=== PATIENT | male | born 1960 | race Caucasian/White ===

== ENCOUNTER 2019-04-23 22:55 | Emergency (ER) | payer OTHER ==
[~2019-04-23] VITALS: Ht 177.8 cm; Wt 77.6 kg
--- OUTSIDE RECORDS SUMMARY | 2019-04-23 23:00 | XMS REPORT | Continuity of Care Document ---
Author Organization Unknown Address Unknown Allergies There is no data. Medications There is no data. Problems There is no data. Procedures There is no data. Results Test Result Range TSH - 02/11/19 14:10 TSH 1.20 mIU/L 0.40-4.50 A1C - 02/11/19 14:10 HEMOGLOBIN A1c 5.3 % of total Hgb <5.7 MAGNESIUM SERUM - 02/21/19 14:45 MAGNESIUM 2.2 mg/dL 1.5-2.5 CBC - 02/21/19 14:45 WHITE BLOOD CELL COUNT 3.7 Thousand/uL 3.8-10.8 RED BLOOD CELL COUNT 4.38 Million/uL 4.20-5.80 HEMOGLOBIN 13.5 g/dL 13.2-17.1 HEMATOCRIT 40.2 % 38.5-50.0 MCV 91.8 fL 80.0-100.0 MCH 30.8 pg 27.0-33.0 MCHC 33.6 g/dL 32.0-36.0 RDW 12.5 % 11.0-15.0 PLATELET COUNT 122 Thousand/uL 140-400 MPV 14.2 fL 7.5-12.5 ABSOLUTE NEUTROPHILS 1669 cells/uL [id number] ABSOLUTE LYMPHOCYTES 1251 cells/uL 850-3900 ABSOLUTE MONOCYTES 366 cells/uL 200-950 ABSOLUTE EOSINOPHILS 337 cells/uL 15-500 ABSOLUTE BASOPHILS 78 cells/uL 0-200 NEUTROPHILS 45.1 % NRG LYMPHOCYTES 33.8 % NRG MONOCYTES 9.9 % NRG EOSINOPHILS 9.1 % NRG BASOPHILS 2.1 % NRG ESR/SED RATE - 02/21/19 14:45 SED RATE BY MODIFIED WESTERGREN 2 mm/h < OR=20 VITAMIN D, 25-H - 02/21/19 14:45 VITAMIN D,25-OH,TOTAL,IA 39 ng/mL 30-100 MYOGLOBIN - 02/21/19 14:45 MYOGLOBIN, SERUM 39 mcg/L < 96 Encounters ACCT No. Visit Date/Time Discharge Status Pt. Type Provider Facility Loc./Unit Complaint [id number] 02/21/2019 13:45:00 02/21/2019 23:59:59 [facility] Out[facility] [id number] 02/21/2019 13:45:00 Document Registration [id number] 02/11/2019 13:45:00 Document Registration
[2019-04-23] MEDS ORDERED: ASPIRIN 81 MG CHEW (CHILDREN'S ASA) PO ONE (23:15)
--- NOTE | 2019-04-23 23:17 | ED Chest Pain ---
General Stated Complaint: CHEST PAIN, BACK PAIN, SOB, DIZZY Source: patient Exam Limitations: no limitations History of Present Illness Date Seen by Provider: April 23, 2019 Time Seen by Provider: 23:00 Initial Comments The patient presents to ER by private conveyance from work at the [employer] where he was experiencing some chest pressure that occurred just within the last 15 minutes prior to arrival. He does not have a history of heart disease and denies that this pain just pressure. He says for the past 2 weeks is been noticing some intermittent, exertional based sharp chest pains in the center of his chest. Today's pressure radiates through to his back. He was having some of his chest pains in the last couple hours but they're fleeting and short-lived seconds to a minute or less so he did not think much of them. He did not take anything for them. No history of GERD or reflux. He started getting the chest pressure and it was worse the more he worked so after coming over here and sitting down in the ER he says it is getting better spontaneously. He does have a history of high blood pressure and his prescribed lisinopril but he says he only takes it when his blood pressure gets very high. He denies a history of hypercholesterolemia. He does have a history of paroxysmal atrial fibrillation and so he does not smoke drink or use recreational drugs. He does not use blood thinners. He is known Dr. Bland and does not see a family service caseworker. No familial history of early-onset coronary disease. He denies a history of thyroid disorder. Allergies and Home Medications Allergies Coded Allergies: No Known Drug Allergies (Unverified , 04/23/19) Patient Home Medication List Home Medication List Reviewed: Yes Review of Systems Review of Systems Constitutional: No chills, No diaphoresis, No fever, No malaise EENTM: No Blurred Vision, No Double Vision Respiratory: Denies Cough, Denies Shortness of Air, Denies SOA With Exertion Cardiovascular: See HPI, Chest Pain; Denies Edema, Denies Irregular Heart Rate, Denies Lightheadedness, Denies Palpitations, Denies Syncope Gastrointestinal: Denies Abdomen Distended, Denies Abdominal Pain, Denies Constipated, Denies Diarrhea, Denies Nausea Genitourinary: Denies Burning, Denies Discharge Musculoskeletal: see HPI, back pain; No joint pain Skin: No pruritus, No rash Psychiatric/Neurological: Denies Headache, Denies Numbness, Denies Paresthesia Past Ljdjhbx-Yescle-Ncnnsa Hx Patient Social History Alcohol Use: Denies Use Recreational Drug Use: No Smoking Status: Never a Smoker Recent Foreign Travel: No Contact w/Someone Who Travel: No Physical Exam Vital Signs Vital Signs - First Documented 04/23/19 22:59 Temp 98.0 Pulse 89 Resp 16 B/P (MAP) 171/101 (124) Pulse Ox 100 O2 Delivery Room Air Capillary Refill : Height, Weight, BMI Height: '" Weight: lbs. oz. kg; BMI Method: General Appearance: No Apparent Distress, WD/WN HEENT: PERRL/EOMI, Pharynx Normal, Moist Mucous Membranes Neck: Full Range of Motion, Normal Inspection Respiratory: Chest Non Tender, Lungs Clear, Normal Breath Sounds, No Accessory Muscle Use, No Respiratory Distress Cardiovascular: Regular Rate, Rhythm, No Edema, No Gallop, No JVD, No Murmur, Normal Peripheral Pulses Gastrointestinal: Normal Bowel Sounds, No Organomegaly, Non Tender, Soft Extremity: Normal Capillary Refill, Normal Inspection, No Pedal Edema Neurologic/Psychiatric: Alert, Oriented x3 Skin: Normal Color, Warm/Dry Progress/Results/Core Measures Results/Orders Lab Results Laboratory Tests Test 04/23/19 00:22 04/23/19 23:13 04/24/19 00:55 Range/Units White Blood Count 6.2 4.3-11.0 10^3/uL Red Blood Count 4.40 4.35-5.85 10^6/uL Hemoglobin 13.6 13.3-17.7 G/DL Hematocrit 40 40-54 % Mean Corpuscular Volume 91 80-99 FL Mean Corpuscular Hemoglobin 31 25-34 PG Mean Corpuscular Hemoglobin Concent 34 32-36 G/DL Red Cell Distribution Width 12.7 10.0-14.5 % Platelet Count 126 L 130-400 10^3/uL Mean Platelet Volume 12.4 H 7.4-10.4 FL Neutrophils (%) (Auto) 38 L 42-75 % Lymphocytes (%) (Auto) 42 12-44 % Monocytes (%) (Auto) 14 H 0-12 % Eosinophils (%) (Auto) 6 0-10 % Basophils (%) (Auto) 1 0-10 % Neutrophils # (Auto) 2.3 1.8-7.8 X 10^3 Lymphocytes # (Auto) 2.6 1.0-4.0 X 10^3 Monocytes # (Auto) 0.8 0.0-1.0 X 10^3 Eosinophils # (Auto) 0.3 0.0-0.3 10^3/uL Basophils # (Auto) 0.1 0.0-0.1 10^3/uL Prothrombin Time 12.9 12.2-14.7 SEC INR Comment 0.9 0.8-1.4 Activated Partial Thromboplast Time 27 24-35 SEC Sodium Level 141 135-145 MMOL/L Potassium Level 3.7 3.6-5.0 MMOL/L Chloride Level 102 98-107 MMOL/L Carbon Dioxide Level 24 21-32 MMOL/L Anion Gap 15 H 5-14 MMOL/L Blood Urea Nitrogen 19 H 7-18 MG/DL Creatinine 0.98 0.60-1.30 MG/DL Estimat Glomerular Filtration Rate > 60 BUN/Creatinine Ratio 19 Glucose Level 106 H 70-105 MG/DL Calcium Level 8.8 8.5-10.1 MG/DL Corrected Calcium 8.5 8.5-10.1 MG/DL Magnesium Level 1.9 1.8-2.4 MG/DL Total Bilirubin 0.4 0.1-1.0 MG/DL Aspartate Amino Transf (AST/SGOT) 22 5-34 U/L Alanine Aminotransferase (ALT/SGPT) 13 0-55 U/L Alkaline Phosphatase 93 40-136 U/L Myoglobin 35.4 10.0-92.0 NG/ML Troponin T < 6 < 6 <=15 NG/L Pro-B-Type Natriuretic Peptide 42.4 <75.0 PG/ML Total Protein 7.0 6.4-8.2 GM/DL Albumin 4.4 3.2-4.5 GM/DL Lipase 63 8-78 U/L My Orders Orders - GARY PICKERING Continuous Ekg Monitoring (04/23/19 23:00) Ekg Tracing (04/23/19 23:00) Cbc With Automated Diff (04/23/19 23:10) Magnesium (04/23/19 23:10) Chest 1 View Ap/Pa Only (04/23/19 23:10) Comprehensive Metabolic Panel (04/23/19 23:10) Myoglobin Serum (04/23/19 23:10) Protime With Inr (04/23/19 23:10) Partial Thromboplastin Time (04/23/19 23:10) O2 (04/23/19 23:10) Lipid Panel (04/24/19 06:00) Aspirin Chewable Tablet (Baby Aspirin Ch (04/23/19 23:15) Ed Iv/Invasive Line Start (04/23/19 23:10) Lipase (04/23/19 23:10) Troponin T (04/23/19 23:10) Probnp Fs (04/23/19 23:10) Troponin T (04/24/19 01:00) Medications Given in ED Current Medications Medications Dose Ordered Sig/Alejandrina Route Start Time Stop Time Status Last Admin Dose Admin Aspirin 324 mg ONCE ONCE PO 04/23/19 23:15 04/23/19 23:16 DC 04/23/19 23:14 324 MG Vital Signs/I&O 04/23/19 22:59 Temp 98.0 Pulse 89 Resp 16 B/P (MAP) 171/101 (124) Pulse Ox 100 O2 Delivery Room Air Progress Progress Note : Time: 23:16 Progress Note Exertional chest pressure that seems to be progressively worsening over the past 2 weeks and has gone away by the time he is here in the ER. We'll give him aspirin to chew and swallow and if it comes back we'll give him nitroglycerin. His blood pressure initially is elevated 170 systolic but just with resting it started come down to 149. Rest of his vital signs are aseptic. We'll obtain chest x-ray labs thinking about coronary. He is not hypoxic or tachycardic with a heart rate in the 80s so pulmonary embolism is less likely. Since his pressure goes through to his back we could entertain the possibility of a AAA but this too seems unlikely since his symptoms have resolved within 20 minutes. Lipase ED ACS 14 points. Low risk by the EDACS Score. If the patient also has: (1) EKG without new ischemic changes and (2) negative initial and 2-hour troponins, then this patient is safe for discharge to early outpatient follow-up investigation (or proceed to earlier inpatient testing). If EKG with ischemic changes or positive troponin, they are not low risk and require normal risk stratification. Initial ECG Impression Date: April 23, 2019 Initial ECG Impression Time: 23:05 Initial ECG Rate: 84 Initial ECG Rhythm: Normal Sinus Initial ECG Intervals: Normal Initial ECG Impression: Normal Initial ECG Comparisson: No Previous ECG Available Comment Normal sinus rhythm without ST elevation or depression. Diagnostic Imaging Diagonstic Imaging: Xray Plain Films/CT/US/NM/MRI: chest (1v) Comments No Acute cardiopulmonary processes noted. Reviewed: Reviewed by Me Departure Impression Primary Impression: Chest discomfort Disposition: HOME, SELF-CARE Condition: Stable Departure-Patient Inst. Decision time for Depature: 02:08 Referrals: SUJATA BLAND MD (PCP) Primary Care Physician GARFIELD NOBLES MD Patient Instructions: Chest Pain (DC) Add. Discharge Instructions: Call the family service caseworker tomorrow make an appointment to follow-up. Discussed possible causes of your chest discomfort. If your chest discomfort comes back or comes back as a sharp pain or you cannot breathe or you have other worrisome symptoms please return to the nearest ER for further evaluation and management. GARY PICKERING April 23, 2019 23:17
[2019-04-23 23:21] LABS: HEMATOCRIT 40 % (40-54); HEMOGLOBIN 13.6 G/DL (13.3-17.7); MEAN CORPUSCULAR HEMOGLOBIN 31 PG (25-34); MEAN CORPUSCULAR HGB CONC 34 G/DL (32-36); MEAN CORPUSCULAR VOLUME 91 FL (80-99); MEAN PLATELET VOLUME 12.4 FL (7.4-10.4); PLATELET COUNT 126 10^3/uL (130-400); RED CELL DISTRIBUTION WIDTH 12.7 % (10.0-14.5); WHITE BLOOD COUNT 6.2 10^3/uL (4.3-11.0)
[2019-04-23 23:22] LABS: BASOPHILS # (AUTO) 0.1 10^3/uL (0.0-0.1); BASOPHILS % (AUTO) 1 % (0-10); EOSINOPHILS # (AUTO) 0.3 10^3/uL (0.0-0.3); EOSINOPHILS % (AUTO) 6 % (0-10); LYMPHOCYTES # (AUTO) 2.6 X 10^3 (1.0-4.0); LYMPHOCYTES % (AUTO) 42 % (12-44); MONOCYTES # (AUTO) 0.8 X 10^3 (0.0-1.0); MONOCYTES % (AUTO) 14 % (0-12); NEUTROPHILS # (AUTO) 2.3 X 10^3 (1.8-7.8); NEUTROPHILS % (AUTO) 38 % (42-75)
[2019-04-23 23:38] LABS: INR 0.9 (0.8-1.4); PROTHROMBIN TIME PATIENT 12.9 SEC (12.2-14.7)
[2019-04-23 23:49] LABS: BUN/CREATININE RATIO 19; CARBON DIOXIDE 24 MMOL/L (21-32); CHLORIDE 102 MMOL/L (98-107); CREATININE SERUM 0.98 MG/DL (0.60-1.30); GFR ESTIMATED > 60; POTASSIUM 3.7 MMOL/L (3.6-5.0); SODIUM 141 MMOL/L (135-145)
[2019-04-23 23:50] LABS: ALANINE AMINOTRANSFERASE 13 U/L (0-55); ALBUMIN 4.4 GM/DL (3.2-4.5); ALKALINE PHOSPHATASE 93 U/L (40-136); BILIRUBIN,TOTAL 0.4 MG/DL (0.1-1.0); CALCIUM 8.8 MG/DL (8.5-10.1); GLUCOSE 106 MG/DL (70-105); LIPASE 63 U/L (8-78); MAGNESIUM 1.9 MG/DL (1.8-2.4)
[2019-04-24 02:31] VITALS: BP 167/82
--- NOTE | 2019-04-24 05:28 | Diagnostic Imaging Report ---
INDICATION: Chest pressure and weakness COMPARISON: None FINDINGS: Single frontal view of the chest demonstrates normal heart size and pulmonary vascularity. The lungs are well aerated and clear. No large pleural effusion or pneumothorax is seen. The visualized osseous structures show no acute abnormalities. IMPRESSION: 1. No acute cardiopulmonary process. Dictated by: Dictated on workstation # [id number]
[2019-04-24 11:58] LABS: CHOLESTEROL 160 MG/DL (< 200); HDL CHOLESTEROL 67 MG/DL (40-60); TRIGLYCERIDES 67 MG/DL (<150); VLDL CHOLESTEROL 13 MG/DL (5-40)
== END 2019-04-24 02:18 | disposition home or self-care (01) ==
LOC: EDUNIT# 22:55 → ER FS 22:56
DX: R07.89 Other chest pain (principal); I48.0 Paroxysmal atrial fibrillation
CPT/HCPCS: 36415; 71045; 80053; 80061; 83690; 83735; 83874; 83880; 84484; 85025; 85610; 85730; 93005; 93041

== ENCOUNTER 2021-06-07 17:06 | Emergency (ER) | payer OTHER ==
[~2021-06-07] VITALS: Ht 177 cm; Wt 77.0 kg
--- NOTE | 2021-06-07 17:14 | ED General ---
General Stated Complaint: HIGH BP History of Present Illness Date Seen by Provider: Jun 07, 2021 Time Seen by Provider: 17:14 Initial Comments 60-year-old male presents with concern of high blood pressure while at work today. Patient states he felt some heart palpitations and sodium worried and checked his blood pressure and it was 190/?, So he thought he be safe and came to the ER for evaluation. Denies any rapid heart rate on arrival, any irregular heart beat or chest pain. Denies any recent illness, fever chills cough or shortness of air. Denies swelling of extremities. Patient long-term history of atrial fib controlled with medication. )diltiazem, atenolol and lisinopril). Followed by his PCP, Dr. Bland Allergies and Home Medications Allergies Coded Allergies: No Known Drug Allergies (Unverified , 04/23/19) Patient Home Medication List Home Medication List Reviewed: Yes Review of Systems Review of Systems Constitutional: No fever, No malaise, No weakness Respiratory: No cough, No short of breath Cardiovascular: No chest pain, No edema; palpitations; No syncope Gastrointestinal: No abdominal pain, No loss of appetite, No nausea, No vomiting Musculoskeletal: No back pain, No joint pain, No muscle pain Skin: No change in color, No rash Past Ftdnxyt-Tdkoog-Cntiaz Hx Seasonal Allergies Seasonal Allergies: No Past Medical History Surgeries: No Respiratory: No Cardiac: Yes Atrial Fibrillation, Hypertension Neurological: No Genitourinary: No Gastrointestinal: No Musculoskeletal: No Endocrine: No HEENT: No Cancer: No Psychosocial: No Integumentary: No Blood Disorders: No Physical Exam Vital Signs Vital Signs - First Documented 06/07/21 17:06 Temp 36.7 Pulse 82 Resp 16 B/P (MAP) 178/79 (112) Pulse Ox 98 O2 Delivery Room Air Capillary Refill : Height, Weight, BMI Height: 5'10.00" Weight: 171lbs. 0oz. 77.277961hc; BMI Method:Stated General Appearance: No Apparent Distress, WD/WN HEENT: PERRL/EOMI, Normal ENT Inspection Neck: Full Range of Motion, Non Tender, Supple Respiratory: Chest Non Tender, Lungs Clear, Normal Breath Sounds, No Accessory Muscle Use, No Respiratory Distress Cardiovascular: Regular Rate, Rhythm, No Edema, No Gallop, No JVD, Normal Peripheral Pulses Gastrointestinal: Non Tender, Soft Extremity: Non Tender, No Pedal Edema Neurologic/Psychiatric: Alert, Oriented x3, No Motor/Sensory Deficits Progress/Results/Core Measures Suspected Sepsis SIRS Temperature: Pulse: Respiratory Rate: Blood Pressure / Mean: Results/Orders Vital Signs/I&O 06/07/21 06/07/21 17:06 17:41 Temp 36.7 Pulse 82 78 Resp 16 16 B/P (MAP) 178/79 (112) 148/79 Pulse Ox 98 100 O2 Delivery Room Air Room Air Capillary Refill : Progress Note : Progress Note Patient asymptomatic on arrival with blood pressure 140s over 70 and normal heart rate and normal oxygen saturation. Discussed his blood pressure findings earlier after having an episode of brief palpitations. Patient was concerned that he should be evaluated after he finished work. Reassurance given, normal findings and asymptomatic on good medication to control his heart rate and blood pressure. Advised to continue his current medications and see his doctor in 1 to 2 weeks. Return to the ER for sustained increased heart rate or continuous palpitations or chest pain or shortness of air or new onset swelling of extremities. Departure Impression Primary Impression: Palpitations Additional Impression: Hypertension Qualified Codes: I10 - Essential (primary) hypertension Disposition: HOME, SELF-CARE Condition: Stable Departure-Patient Inst. Decision time for Depature: 17:34 Referrals: SUJATA BLAND MD (PCP/Family) Primary Care Physician Patient Instructions: High Blood Pressure in Adults Add. Discharge Instructions: follow up with Dr Bland in 1 to 2 weeks for re-evaluation of your blood pressure. Continue your current medications as directed. Take your blood pressure no more than once daily and record your readings in a log for review with ANABELA Fregoso DO Jun 07, 2021 17:14
[2021-06-07] MEDS ORDERED: ATEN25TA (17:19)
[2021-06-07] MEDS ORDERED: LISI20TA26 (17:19)
[2021-06-07 17:41] VITALS: BP 148/79
== END 2021-06-07 17:41 | disposition home or self-care (01) ==
LOC: EDUNIT# 17:06 → ER FS 17:07
DX: R00.2 Palpitations (principal); I10 Essential (primary) hypertension
CPT/HCPCS: 99283

== ENCOUNTER → 2021-12-21 | Outpatient (CLI) | payer OTHER ==
[~2021-12-21] VITALS: Ht 177 cm; Wt 70.0 kg
[~2021-12-21] MED LIST: ATEN25TA; CATHETER FLUSH 10 ML SYR IV PRN; LISI20TA26
[2021-12-21 13:06] VITALS: BP 131/73
[2021-12-21 13:18] VITALS: BP 157/82
--- NOTE | 2021-12-21 18:21 | STRESS TEST ---
DATE OF SERVICE: 12/21/2021 RESTING AND POST EXERCISE TECHNETIUM-99M TETROFOSMIN SPECT CT IMAGING ORDERING PHYSICIAN: Dr. Chao. PRIMARY PHYSICIAN: Dr. Bland. CLINICAL DIAGNOSIS: Paroxysmal atrial fibrillation. Baseline images were carried out after injection of 11 mCi of technetium-99m Tetrofosmin. Subsequently, exercise was carried out on a treadmill. Anoop protocol was employed. Heart rate response to exercise was normal. Blood pressure response to exercise was somewhat hypertensive. He exercised for a total of 7 minutes and 29 seconds and attained 8.9 METS of workload and 90% of maximum predicted heart rate. Test was stopped on account of fatigue. There was approximately [address] segment depression at peak exercise. After he had attained 85% of maximum predicted heart rate, 30.3 mCi of technetium-99m Tetrofosmin were injected and the exercise was continued for approximately another minute. Review of images at rest and following stress does not indicate any distinct perfusion defects consistent with significant myocardial ischemia or infarction. Gated images show a normal global left ventricular systolic function with normal regional wall motion. Left ventricular ejection fraction is calculated to be 51%. Left ventricular end-diastolic volume is 76 mL. TID is absent (0.94). CONCLUSIONS: 1. No evidence of any significant myocardial ischemia or infarction on this study. 2. Normal regional wall motion. 3. Normal global left ventricular systolic function with a calculated ejection fraction of 51%. Job ID: [id number] DocumentID: [id number] Dictated Date: 12/21/2021 15:52:14 Collar Band Creaser Date: 12/21/2021 18:20:29 Dictated By: KATHERINE CHAO MD, MA, FACP, FACC,
== END ==
LOC: CARD 11:30
PROVIDERS: ATTEND Internal Medicine Cardiovascular Disease
DX: I48.0 Paroxysmal atrial fibrillation (principal)
CPT/HCPCS: 78452; 93017; 93225; 93226; 93306; A9502

== ENCOUNTER 2022-01-25 09:00 | Day surgery (SDC) | payer OTHER ==
[~2022-01-25] VITALS: Ht 179.1 cm; Wt 71.2 kg
[2022-01-25 08:03] VITALS: BP 164/89
[~2022-01-25 09:00] MED LIST changes: -CATHETER FLUSH 10 ML SYR IV PRN; +LIDOCAINE 1% INJ 50 ML (XYLOCAINE) VIAL ONE
--- NOTE | 2022-01-25 17:35 | OPERATIVE REPORT ---
DATE OF SERVICE: 01/25/2022 INDICATIONS: The patient is a 61-year-old gentleman who has been having palpitations for which Holter monitor has not been enough in making a diagnosis. Implantable loop recorder implantation was carried out today after having obtained an informed consent. DESCRIPTION OF PROCEDURE: [facility] The left prepectoral area was prepared and draped in the usual sterile fashion. We used the tools provided with the Medtronic LINQ II device to make a subcutaneous pocket anterior to the left fourth intercostal space into which the device was placed and the wound edges were closed using Dermabond and Steri-Strips. He tolerated the procedure well. The serial number of the device is [id number]. Job ID: [id number] DocumentID: [id number] Dictated Date: 01/25/2022 09:15:42 Deck Specialist Date: 01/25/2022 17:34:44 Dictated By: KATHERINE YBARRA MD, MA, FACP, FACC,
== END 2022-01-25 09:47 | disposition home or self-care (01) ==
LOC: CATH 09:00
PROVIDERS: ATTEND Internal Medicine Cardiovascular Disease
DX: R00.2 Palpitations (principal); I48.0 Paroxysmal atrial fibrillation; I10 Essential (primary) hypertension; Z79.82 Long term (current) use of aspirin
CPT/HCPCS: 33285; 93005; C1764